=== PATIENT | male | born 1965 | race Caucasian/White ===

== ENCOUNTER 2017-06-09 09:24 | Emergency (ER) | payer SELFPAY ==
[~2017-06-09] VITALS: Ht 180.3 cm; Wt 60.0 kg
[~2017-06-09 09:24] MED LIST: GABA300C3 PO; KETO10 PO
[2017-06-09 10:03] VITALS: BP 153/72; PULSE 71; RESP 16; TEMP 98.6; O2SAT 99
[2017-06-09] MEDS ORDERED: IBUPROFEN 600 MG TAB PO ONE (10:15)
--- NOTE | 2017-06-09 10:45 | RADRPT ---
EXAM DATE/TIME: 06/09/2017 10:17 [facility] COMPARISON: No previous studies available for comparison. INDICATIONS : Lumbar spine pain radiating down left hip post fall 3 days ago. MEDICAL HISTORY : Thyroid disease. Gout. Cervical disc issues. SURGICAL HISTORY : None. ENCOUNTER: Initial ACUITY: 3 days PAIN SCORE: 10/10 LOCATION: Left lumbar spine FINDINGS: AP and lateral views of the lumbar spine were obtained and demonstrate a mild rotatory scoliosis. The re are mild degenerative disc changes with disc space narrowing hypertrophic change. There is no acut e fracture or malalignment. There are mild vascular calcifications. The sacrum is intact. There is pa rtial sacralization of the last lumbar segment. CONCLUSION: 1. No acute fracture or malalignment. 2. Degenerative disc change. 3. Partial sacralization of the last lumbar segment. Wes Bucio MD on June 09, 2017 at 10:42 Board Certified Radiologist. This report was verified electronically.
--- NOTE | 2017-06-09 10:45 | RADRPT ---
EXAM DATE/TIME: 06/09/2017 10:20 [facility] COMPARISON: No previous studies available for comparison. INDICATIONS : Thoracic spine pain especially between shoulder blades post fall 3 days ago. MEDICAL HISTORY : Thyroid disease. Gout. Cervical disc issues. SURGICAL HISTORY : None. ENCOUNTER: Initial ACUITY: 3 days PAIN SCORE: 10/10 LOCATION: thoracic spine FINDINGS: AP and lateral views of the thoracic spine were obtained and demonstrate mild to moderate degenerativ e disc change with disc space narrowing and spurring. There is no acute fracture or malalignment. The re is a minimal scoliosis. CONCLUSION: Negative trauma study with degenerative change. Wes Bucio MD on June 09, 2017 at 10:43 Board Certified Radiologist. This report was verified electronically.
--- NOTE | 2017-06-09 10:46 | RADRPT ---
EXAM DATE/TIME: 06/09/2017 10:11 [facility] COMPARISON: No previous studies available for comparison. INDICATIONS : Neck pain radiating down arms post fall 3 days ago. MEDICAL HISTORY : Thyroid disease. Gout. Cervical disc issues. SURGICAL HISTORY : None. ENCOUNTER: Initial ACUITY: 3 days PAIN SCORE: 10/10 LOCATION: cervical spine. FINDINGS: Two projection examination was performed. There is normal alignment and curvature of the vertebral b odies down to the level of C7. No evidence of fracture or subluxation. Vertebral body height is william ntained. The disc spaces are maintained. The prevertebral soft tissues are of normal thickness. Th e atlanto-axial articulation is intact. CONCLUSION: Negative trauma study. Wes Bucio MD on June 09, 2017 at 10:45 Board Certified Radiologist. This report was verified electronically.
[2017-06-09 11:20] VITALS: BP 152/82; PULSE 101; RESP 16; O2SAT 100
[2017-06-09] MEDS ORDERED: CYCL1TAB29 PO (11:37)
[2017-06-09] MEDS ORDERED: IBUP-232 PO (11:37)
--- NOTE | 2017-06-09 11:37 | PD ---
HPI Chief Complaint: Musculoskeletal Complaint Time Seen by Provider: 09:56 Travel History International Travel<30 days: No Contact w/Intl Traveler<30days: No Traveled to known affect area: No History of Present Illness HPI This 52-year-old male is complaining of back pain. He says he has pain in his neck is thoracic spine and lumbar spine. He does get pain that goes down his right leg. He denies any recent injury. He says this is been going on for years. This morning when he stood up he had increasing pain in the back and he did fall. He has not been hydrated for this pain in the past. He has not had any x-rays done. History is obtained with the help of a polishing machine tender [facility] Past Medical History Blood Disorders: No Cardiovascular Problems: Yes (has had heart problem as child but does not know what it is ) Chemotherapy: No Chest Pain: Yes Gout: Yes Genitourinary: No Immune Disorder: No Musculoskeletal: Yes (herniated disc, cervical disc issues, gout ) Psychiatric: No Reproductive: No Respiratory: No Radiation Therapy: No Thyroid Disease: Yes (NODULE AND HYPERTHYROIDISM, needs to follow up still determine benign/CA) Influenza Vaccination: No Past Surgical History Other Surgery: Yes (CYST > 20 YRS) Social History Alcohol Use: No Tobacco Use: No (QUIT) Substance Use: No Allergies-Medications (Allergen,Severity, Reaction): Coded Allergies: No Known Allergies (Unverified , 06/09/17) Reported Meds & Prescriptions Reported Meds & Active Scripts Active No Active Prescriptions or Reported Medications Review of Systems General / Constitutional: No: Fever, Chills Eyes: No: Diploplia HENT: No: Headaches, Vertigo Cardiovascular: No: Chest Pain or Discomfort, Palpitations Respiratory: No: Cough, Shortness of Breath Gastrointestinal: No: Nausea, Vomiting Genitourinary: No: Urgency Musculoskeletal: Positive: Myalgias, Pain Skin: No Rash, No Itching Neurologic: No: Weakness, Dizziness Endocrine: No: Heat Intolerance Hematologic/Lymphatic: No: Easy Bruising Physical Exam Narrative GENERAL: Thin male no acute distress SKIN: Focused skin assessment warm/dry. HEAD: Atraumatic. Normocephalic. EYES: Pupils equal and round. No scleral icterus. No injection or drainage. ENT: No nasal bleeding or discharge. Mucous membranes pink and moist. NECK: Trachea midline. No JVD. CARDIOVASCULAR: Regular rate and rhythm. No murmur appreciated. RESPIRATORY: No accessory muscle use. Clear to auscultation. Breath sounds equal bilaterally. GASTROINTESTINAL: Abdomen soft, non-tender, nondistended. Hepatic and splenic margins not palpable. MUSCULOSKELETAL: No obvious deformities. No clubbing. No cyanosis. No edema. There is somewhat diffuse tenderness throughout the spine. Straight leg raising is normal bilaterally. He has good strength in flexion surgery NEUROLOGICAL: Awake and alert. No obvious cranial nerve deficits. Motor grossly within normal limits. Normal speech. PSYCHIATRIC: Appropriate mood and affect; insight and judgment normal. Data Data Last Documented VS Vital Signs Date Time Temp Pulse Resp B/P Pulse Ox O2 Delivery O2 Flow Rate FiO2 06/09/17 11:20 101 16 152/82 100 06/09/17 10:03 98.6 Orders Spine, Cervical - Ltd (Ap&Lat) (06/09/17 09:56) Spine, Thoracic-Ap/Lat/Sw(3vw) (06/09/17 09:56) Spine, Lumbar - Ltd (Ap & Lat) (06/09/17 09:56) Ibuprofen (Motrin) (06/09/17 10:15) MDM Medical Decision Making Medical Screen Exam Complete: Yes Emergency Medical Condition: Yes Medical Record Reviewed: Yes Differential Diagnosis Differential includes degenerative disease of the spine, cervical strain Narrative Course X-ray of the cervical thoracic and lumbar spine are negative. Patient does have degenerative changes apparent on the x-ray. He does have pain going down the leg suggestive of sciatica. Stable for discharge Diagnosis Primary Impression: Back pain Qualified Code: M54.9 - Chronic midline back pain, unspecified back location Additional Impression: Sciatic nerve pain Qualified Code: M54.31 - Right sciatic nerve pain Scripts Cyclobenzaprine (Flexeril)10 Mg Tab10 Mg PO TID PRN (PAIN) #40 TAB Ref 0 Prov:Artie Holliday MD 06/09/17 Ibuprofen 600 Mg [id number] Mg PO Q8HR PRN (PAIN) #30 TAB Ref 0 Prov:Artie Holliday MD 06/09/17 Disposition: 01 DISCHARGE HOME Condition: Stable Artie Holliday MD Jun 09, 2017 11:37
== END 2017-06-09 11:55 | disposition home or self-care (01) ==
LOC: PHED 09:24
DX: M54.31 Sciatica, right side (principal); M54.2 Cervicalgia; M54.6 Pain in thoracic spine; M54.5 Low back pain; E07.9 Disorder of thyroid, unspecified; Z86.79 Personal history of other diseases of the circulatory system; Z87.39 Personal history of other diseases of the musculoskeletal system and connective tissue
CPT/HCPCS: 72040; 72072; 72100; 99283

== ENCOUNTER 2017-08-19 09:04 | Emergency (ER) | payer SELFPAY ==
[~2017-08-19 09:04] MED LIST changes: +CYCL10TA PO; -GABA300C3 PO; +IBUP-232 PO; -KETO10 PO
[2017-08-19 09:09] VITALS: BP 153/73; PULSE 60; RESP 20; TEMP 97.9; O2SAT 100
[2017-08-19] MEDS ORDERED: GABA300C5 PO (09:12)
[2017-08-19] MEDS ORDERED: ACETAMINOPHEN/HYDROcodone 325 MG/5 MG TAB PO ONE (09:45)
[2017-08-19] MEDS ORDERED: IBUP-232 PO (10:08)
[2017-08-19] MEDS ORDERED: CYCL10TA PO (10:08)
--- NOTE | 2017-08-19 10:09 | PD ---
HPI Chief Complaint: Back/ Neck Pain or Injury Time Seen by Provider: 09:23 Travel History International Travel<30 days: No Contact w/Intl Traveler<30days: No Traveled to known affect area: No History of Present Illness HPI This 52-year-old male is complaining of back pain. He has a history of back pain and was seen here in May for back pain. He had x-rays of his cervical and thoracic and lumbar spines at that time and was discharged with prescriptions for Flexeril and ibuprofen. He says the medication helped him and he was well for several months. He's been having increasing pain the last couple of days. Last night the pain was quite severe when he had to get up at 3 :00 to go to the bathroom. The pain goes down his right leg. He has not been taking any medication for it. There has not been any dysuria or incontinence PFSH Past Medical History Blood Disorders: No Cardiovascular Problems: Yes (has had heart problem as child but does not know what it is ) Chemotherapy: No Chest Pain: Yes Gout: Yes Genitourinary: No Immune Disorder: No Musculoskeletal: Yes (herniated disc, cervical disc issues, gout ) Psychiatric: No Reproductive: No Respiratory: No Radiation Therapy: No Thyroid Disease: Yes (NODULE AND HYPERTHYROIDISM, needs to follow up still determine benign/CA) Past Surgical History Other Surgery: Yes (CYST > 20 YRS) Social History Alcohol Use: No Tobacco Use: Yes (1/2PPD) Substance Use: Yes (MARIJUANA) Allergies-Medications (Allergen,Severity, Reaction): Coded Allergies: Penicillins (Verified Allergy, Unknown, 08/19/17) Reported Meds & Prescriptions Reported Meds & Active Scripts Active No Active Prescriptions or Reported Medications Review of Systems General / Constitutional: No: Fever, Chills Eyes: No: Diploplia, Blurred Vision HENT: No: Headaches, Vertigo Respiratory: No: Cough, Shortness of Breath Gastrointestinal: No: Nausea, Vomiting Genitourinary: No: Frequency Musculoskeletal: Positive: Myalgias, Pain Skin: No Rash Neurologic: No: Weakness Endocrine: No: Heat Intolerance, Cold Intolerance Hematologic/Lymphatic: No: Easy Bruising Physical Exam Narrative GENERAL: Well-developed male SKIN: Focused skin assessment warm/dry. HEAD: Atraumatic. Normocephalic. EYES: Pupils equal and round. No scleral icterus. No injection or drainage. ENT: No nasal bleeding or discharge. Mucous membranes pink and moist. NECK: Trachea midline. No JVD. CARDIOVASCULAR: Regular rate and rhythm. No murmur appreciated. RESPIRATORY: No accessory muscle use. Clear to auscultation. Breath sounds equal bilaterally. GASTROINTESTINAL: Abdomen soft, non-tender, nondistended. Hepatic and splenic margins not palpable. MUSCULOSKELETAL: No obvious deformities. No clubbing. No cyanosis. No edema. Tenderness in the lower back. He has pain with straight leg raising bilaterally at 45 NEUROLOGICAL: Awake and alert. No obvious cranial nerve deficits. Motor grossly within normal limits. Normal speech. PSYCHIATRIC: Appropriate mood and affect; insight and judgment normal. Data Data Last Documented VS Vital Signs Date Time Temp Pulse Resp B/P (MAP) Pulse Ox O2 Delivery O2 Flow Rate FiO2 08/19/17 09:09 97.9 60 20 153/73 (99) 100 Orders Orders Acetamin-Hydrocod 325-5 Mg ([place] 5-325 (08/19/17 09:45) [facility] Medical Decision Making Medical Screen Exam Complete: Yes Emergency Medical Condition: Yes Medical Record Reviewed: Yes Differential Diagnosis Differential includes musculoskeletal back pain, HNP, Narrative Course Patient has had recent imaging of his back. He responded well previously to ibuprofen and Flexeril and I will prescribe this again. We will requests that he follow-up with the [facility] Diagnosis Primary Impression: Back pain Additional Impression: Sciatic nerve pain Scripts Ibuprofen (Ibuprofen) 600 Mg Tab 600 MG PO Q8HR Y for PAIN, #30 TAB 0 Refills Prov: Artie Holliday MD 08/19/17 Cyclobenzaprine (Flexeril) 10 Mg Tab 10 MG PO TID Y for PAIN, #40 TAB 0 Refills Prov: Artie Holliday MD 08/19/17 Disposition: 01 DISCHARGE HOME Condition: Stable Artie Holliday MD Aug 19, 2017 10:09
== END 2017-08-19 10:28 | disposition home or self-care (01) ==
LOC: PHED 09:04
DX: M54.9 Dorsalgia, unspecified (principal); M54.30 Sciatica, unspecified side
CPT/HCPCS: 99283